=== PATIENT | male | born 1995 | race African-American/Black ===

== ENCOUNTER 2017-10-04 19:04 | Emergency (ER) | payer SELFPAY ==
[2017-10-04 19:19] VITALS: BP 134/83; PULSE 80; RESP 18; TEMP 98.8; O2SAT 99
--- NOTE | 2017-10-04 20:15 | PD ---
HPI Chief Complaint: Skin Problem Time Seen by Provider: 20:14 Travel History International Travel<30 days: No Contact w/Intl Traveler<30days: No Traveled to known affect area: No History of Present Illness HPI 22-year-old male presents to the ED for evaluation of 2 day history of 8/10 pain in the left axilla. The patient states that he was having pain there but today a lump formed. He denies fever, chills, nausea, vomiting, numbness, tingling, weakness, limitations to range of motion of the extremity. He denies history of MRSA. He can recall no acute injury. He does not shave or trim the hair in his axilla. No treatment at home. PFSH Social History Tobacco Use: No Allergies-Medications (Allergen,Severity, Reaction): Coded Allergies: No Known Allergies (Unverified , 10/04/17) Reported Meds & Prescriptions Reported Meds & Active Scripts Active Ibuprofen 600 Mg Tab 600 Mg PO Q8H PRN Keflex (Cephalexin) 500 Mg Cap 500 Mg PO Q12H 7 Days Bactrim DS (Sulfamethoxazole-Trimethoprim) 800-160 Mg Tab 1 Tab PO BID Review of Systems Except as stated in HPI: all other systems reviewed are Neg Physical Exam Narrative GENERAL: Well-nourished, well-developed AA male in NAD. SKIN: Focused skin assessment warm/dry. SKIN: There is an indurated area in the axilla which measures about 1.5 cm in diameter. It is fluctuant but there is no pointing or drainage. There is a zone of inflammation around it but no lymphangitis. HEAD: Normocephalic. EYES: No scleral icterus. No injection or drainage. NECK: Supple, trachea midline. No JVD or lymphadenopathy. CARDIOVASCULAR: Regular rate and rhythm without murmurs, gallops, or rubs. RESPIRATORY: Breath sounds equal bilaterally. No accessory muscle use. GASTROINTESTINAL: Abdomen soft, non-tender, nondistended. MUSCULOSKELETAL: No cyanosis, or edema. BACK: Nontender without obvious deformity. No CVA tenderness. Data Data Last Documented VS Vital Signs Date Time Temp Pulse Resp B/P (MAP) Pulse Ox O2 Delivery O2 Flow Rate FiO2 10/04/17 19:19 98.8 80 18 134/83 (100) 99 Orders Orders Abscess Culture And Gram Stain (10/04/17 20:27) Lidocaine Pf 1% Inj (Xylocaine-Mpf 1% In (10/04/17 20:30) Sulfamet-Trimeth Ds 800-160 Mg (Bactrim (10/04/17 20:30) Cephalexin (Keflex) (10/04/17 20:30) Ibuprofen (Motrin) (10/04/17 20:30) Ed Discharge Order (10/04/17 20:45) MDM Medical Decision Making Medical Screen Exam Complete: Yes Emergency Medical Condition: Yes Differential Diagnosis Folliculitis versus abscess versus cellulitis versus other Narrative Course 22-year-old male presents to the ED for evaluation of 2 day history of 8/10 pain in the left axilla. The patient states that he was having pain there but today a lump formed. He denies fever, chills, nausea, vomiting, numbness, tingling, weakness, limitations to range of motion of the extremity. He denies history of MRSA. He can recall no acute injury. He does not shave or trim the hair in his axilla. Patient afebrile on presentation. Exam consistent with abscess. I&D was performed. Please see my procedure note for details. Patient 's prescribed Bactrim, Keflex, ibuprofen. First doses administered in the ED. He is instructed to return to the ED in 2 days for packing removal and wound recheck. He is stable and discharged home. Procedures Procedure Narrative INCISION AND DRAINAGE OF ABSCESS: The area was prepped and was sterilely draped. A subcutaneous wheal of 1% % Xylocaine with a total number two mL was used to anesthetize the area properly. A number 11 scalpel was used to make a 1 -cm incision across the area of the abscess. The abscess was drained, complex loculations were broken down, and irrigated with normal saline. Cultures were obtained. Quarter inch iodoform packing was placed in the wound. Sterile dressing applied. Patient advised to have packing removed in two days. Diagnosis Primary Impression: Cutaneous abscess of left axilla Referrals: Primary Care Physician Additional Instructions: Keep the wound clean, dry and covered. Dictated antibiotics until every pill is gone. Warm compresses applied to the area may help to reduce her pain. 60 mg ibuprofen up to 3 times a day as needed for pain. Follow-up with the primary care provider. Return to the ED in 48 hours for wound recheck. Med/Other Pt SpecificInfo: Prescription(s) given Scripts Ibuprofen (Ibuprofen) 600 Mg Tab 600 MG PO Q8H Y for PAIN, #15 TAB 0 Refills Prov: Anderson Villeda MD 10/04/17 Cephalexin (Keflex) 500 Mg Cap 500 MG PO Q12H for Infection for 7 Days, #14 CAP 0 Refills Prov: Anderson Villeda MD 10/04/17 Sulfamethoxazole-Trimethoprim (Bactrim DS) 800-160 Mg Tab 1 TAB PO BID for Infection, #14 TAB 0 Refills Prov: Anderson Villeda MD 10/04/17 Disposition: 01 DISCHARGE HOME Condition: Stable Diana Burnett Oct 04, 2017 20:15
[2017-10-04] MEDS ORDERED: IBUP-232 PO (20:29)
[2017-10-04] MEDS ORDERED: CEPH-460 PO (20:29)
[2017-10-04] MEDS ORDERED: BACT800T5 PO (20:29)
[2017-10-04] MEDS ORDERED: LIDOCAINE HCL 1% PF 30 ML VIAL INFIL ONE (20:30)
[2017-10-04] MEDS ORDERED: IBUPROFEN 600 MG TAB PO ONE (20:30)
[2017-10-04] MEDS ORDERED: SULFAMETHOXAZOLE-TRIMETHOPRIM DS 800-160 MG TAB PO ONE (20:30)
[2017-10-04] MEDS ORDERED: CEPHALEXIN MONOHYDRATE 500 MG CAP PO ONE (20:30)
== END 2017-10-04 21:13 | disposition home or self-care (01) ==
LOC: NED 19:04 → EDSEX 19:04 → NEPK 21:13
DX: L02.412 Cutaneous abscess of left axilla (principal); B96.20 Unspecified Escherichia coli [E. coli] as the cause of diseases classified elsewhere
CPT/HCPCS: 10061; 86403; 87070; 87077; 87186; 87205

== ENCOUNTER 2017-10-06 10:59 | Emergency (ER) | payer SELFPAY ==
[~2017-10-06 10:59] MED LIST: BACT800T5 PO; CEPH-460 PO; IBUP-232 PO
[2017-10-06 11:23] VITALS: BP 135/86; PULSE 56; RESP 18; TEMP 97.8; O2SAT 100
[2017-10-06] MEDS ORDERED: CEPH-460 PO (13:22)
[2017-10-06] MEDS ORDERED: BACT800T5 PO (13:22)
--- NOTE | 2017-10-06 13:23 | PD ---
HPI Chief Complaint: Wound/Suture/Staple Re-Check Time Seen by Provider: 13:13 Travel History International Travel<30 days: No Contact w/Intl Traveler<30days: No Traveled to known affect area: No History of Present Illness HPI 22-year-old male presents to the ED for recheck of abscess that was I&D 2 days ago. He denies fever, chills, nausea, vomiting. He states that the pain in the area has decreased. He has not filled his antibiotics. He states that he took the prescriptions to [facility] and was told that they would be more than $40. PFSH Social History Alcohol Use: No Tobacco Use: No Allergies-Medications (Allergen,Severity, Reaction): Coded Allergies: No Known Allergies (Unverified , 10/04/17) Reported Meds & Prescriptions Reported Meds & Active Scripts Active Keflex (Cephalexin) 500 Mg Cap 500 Mg PO Q12H 7 Days Bactrim DS (Sulfamethoxazole-Trimethoprim) 800-160 Mg Tab 1 Tab PO BID Ibuprofen 600 Mg Tab 600 Mg PO Q8H PRN Review of Systems Except as stated in HPI: all other systems reviewed are Neg Physical Exam Narrative GENERAL: Well-nourished, well-developed AA male in NAD. SKIN: Focused skin assessment warm/dry. There is a 1 cm incision in the left axilla with a core drainage packing present. This was removed. No active bleeding. No fluctuance present. Induration is reduced as compared to previous exam. HEAD: Normocephalic. EYES: No scleral icterus. No injection or drainage. NECK: Supple, trachea midline. No JVD or lymphadenopathy. CARDIOVASCULAR: Regular rate and rhythm without murmurs, gallops, or rubs. RESPIRATORY: Breath sounds equal bilaterally. No accessory muscle use. GASTROINTESTINAL: Abdomen soft, non-tender, nondistended. MUSCULOSKELETAL: No cyanosis, or edema. BACK: Nontender without obvious deformity. No CVA tenderness. Data Data Last Documented VS Vital Signs Date Time Temp Pulse Resp B/P (MAP) Pulse Ox O2 Delivery O2 Flow Rate FiO2 10/06/17 11:23 97.8 56 18 135/86 (102) 100 Orders Orders Ed Discharge Order (10/06/17 13:23) MDM Medical Decision Making Medical Screen Exam Complete: Yes Emergency Medical Condition: Yes Differential Diagnosis Abscess recheck versus cellulitis versus packing removal versus other Narrative Course 22-year-old male presents to the ED for recheck of abscess that was I&D 2 days ago. He denies fever, chills, nausea, vomiting. He states that the pain in the area has decreased. He has not filled his antibiotics. He states that he took the prescriptions to [facility] and was told that they would be more than $40. Vitals reviewed. On exam the packing is still in place there is a small amount of purulent drainage. No fluctuance noted. Induration is improved as compared to previous exam. No cellulitic changes. Clean, dry dressing was applied. He states that he left the paper prescriptions with the pharmacist at [facility]. Patient was re-prescribed his medications and provided a good Rx card. He is instructed to take the medications to [place] where they are $5 or less. We discussed reasons to return to the ED. He is stable and discharged home. Diagnosis Primary Impression: Encounter for recheck of abscess following incision and drainage Referrals: Primary Care Physician Additional Instructions: Take the antibiotics to [place], one is approximately $4 and the other is free. Begin taking antibiotics today and take them until every pill is gone. Keep the wound clean, dry and covered. No submerging the wound as discussed. Monitor the wound for signs of infection. Return should they occur. Return to the ED for any urgent or emergent medical condition. Med/Other Pt SpecificInfo: Prescription(s) given Scripts Cephalexin (Keflex) 500 Mg Cap 500 MG PO Q12H for Infection for 7 Days, #14 CAP 0 Refills Prov: Herrera Hernandez MD 10/06/17 Sulfamethoxazole-Trimethoprim (Bactrim DS) 800-160 Mg Tab 1 TAB PO BID for Infection, #14 TAB 0 Refills Prov: Herrera Hernandez MD 10/06/17 Disposition: DISCHARGE HOME Condition: Stable Diana Burnett Oct 06, 2017 13:23
== END 2017-10-06 13:37 | disposition home or self-care (01) ==
LOC: NEPK 10:59
DX: Z48.01 Encounter for change or removal of surgical wound dressing (principal); L02.412 Cutaneous abscess of left axilla
CPT/HCPCS: 99283